=== PATIENT | female | born 1995 | race Caucasian/White ===

== ENCOUNTER 2022-01-16 10:04 | Emergency (ER) | payer OTHER ==
[~2022-01-16] VITALS: Ht 165.1 cm; Wt 63.5 kg
[2022-01-16 10:07] VITALS: BP 128/76
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
--- NOTE | 2022-01-16 12:20 | NUR ---
DR GUERRERO AT BEDSIDE FOR MSE
--- NOTE | 2022-01-16 12:35 | NUR ---
PT AMBULATED TO RESTROOM TO PROVIDE URINE
[2022-01-16 14:30] LABS: BASOPHILS % (AUTO) 0.6 % (0.0-2.0); EOSINOPHILS % (AUTO) 0.2 % (0.0-4.0); HEMATOCRIT 38.1 % (36-48); HEMOGLOBIN 12.5 g/dL (12.0-16.0); LYMPHOCYTES # (AUTO) 2.3 K/uL (2.5-16.5); LYMPHOCYTES % (AUTO) 39.1 % (20.5-51.1); MEAN CORPUSCULAR HEMOGLOBIN 27 pg (27-31); MEAN CORPUSCULAR HGB CONC 33 g/dL (33-37); MEAN CORPUSCULAR VOLUME 83.4 fL (80-94); MONOCYTES # (AUTO) 0.5 K/uL (0.8-1.0); MONOCYTES % (AUTO) 8.2 % (1.7-9.3); NEUTROPHILS # (AUTO) 3.1 K/uL (1.8-7.7); NEUTROPHILS % (AUTO) 51.9 % (42.2-75.2); PLATELET COUNT (AUTO) 237 K/uL (140-450); RED BLOOD CELL COUNT(AUTO) 4.57 MIL/uL (4.20-5.40); RED CELL DISTRIBUTION WIDTH 16.8 % (11.6-13.7)
[2022-01-16 14:54] LABS: ALBUMIN 3.9 g/dL (3.4-5.0); ANION GAP 12.3 (8-16); CARBON DIOXIDE 24.3 mmol/L (21-32); CREATININE 0.6 mg/dL (0.6-1.3); POTASSIUM 3.6 mmol/L (3.5-5.1); TOTAL BILIRUBIN 0.3 mg/dL (0.0-1.0)
[2022-01-16 14:57] LABS: BARBITURATE, URINE NEGATIVE ng/ml (NEG <=200); BENZODIAZEPINE, URINE NEGATIVE ng/mL (NEG <=200); CANNABINOID, URINE NEGATIVE ng/mL (NEG <=50); COCAINE, URINE NEGATIVE ng/mL (NEG <=300); OPIATE, URINE NEGATIVE ng/mL (NEG <=2000); PHENCYCLIDINE SCREEN,URINE NEGATIVE ng/mL (NEG <=25)
[2022-01-16] MEDS ORDERED: ACET-10509 PO (15:23)
[2022-01-16] MEDS ORDERED: METO-486 PO (15:23)
[2022-01-16] MEDS ORDERED: IBUP-2213 PO (15:23)
[2022-01-16] MEDS: KETOROLAC 60 MG/2 ML VIAL IM ONE (16:09)
[2022-01-16] MEDS: METOCLOPRAMIDE 10 MG TAB PO ONE (16:09)
--- NOTE | 2022-01-16 16:09 | NUR ---
pt refused medication at this time.
[2022-01-16 16:10] VITALS: BP 107/62
--- NOTE | 2022-01-16 16:10 | NUR ---
Patient discharged with v/s stable. Written and verbal after care instructions given and explained. Patient alert, oriented and verbalized understanding of instructions. Ambulatory with steady gait. All questions addressed prior to discharge. ID band removed. Patient advised to follow up with PMD. Rx of TYLENOL EXTRA STRENGTH, IBUPROFEN, REGLAN given. Patient educated on indication of medication including possible reaction and side effects. Opportunity to ask questions provided and answered.
== END 2022-01-16 16:10 | disposition home or self-care (01) ==
LOC: MED 10:04
DX: R55 Syncope and collapse (principal); R51.9 Headache, unspecified; Z98.890 Other specified postprocedural states
CPT/HCPCS: 36415; 80053; 80305; 81002; 81025; 84484; 85025; 93005; 99285